=== PATIENT | male | born 1990 | race Caucasian/White ===

== ENCOUNTER 2017-08-26 19:00 | Emergency (ER) | payer BC, OTHER ==
[~2017-08-26] VITALS: Ht 177.8 cm; Wt 86.3 kg
== END 2017-08-26 20:48 | disposition home or self-care (01) ==
LOC: FSED 19:00
DX: S60.221A Contusion of right hand, initial encounter (principal); S60.511A Abrasion of right hand, initial encounter; S60.211A Contusion of right wrist, initial encounter; S60.811A Abrasion of right wrist, initial encounter; W23.1XXA Caught, crushed, jammed, or pinched between stationary objects, initial encounter; Y93.D3 Activity, furniture building and finishing; Y92.008 Other place in unspecified non-institutional (private) residence as the place of occurrence of the external cause
CPT/HCPCS: 99283